=== PATIENT | female | born 1990 | race Hispanic/Latino ===

== ENCOUNTER 2017-08-21 12:47 | Emergency (ER) | payer OTHER ==
[~2017-08-21] VITALS: Ht 157.5 cm; Wt 65.9 kg
[~2017-08-21 12:47] MED LIST: [UNRECOGNIZED DRUG - OTHER] PO
[2017-08-21] MEDS ORDERED: ADDERALL15 MG PO (13:17)
[2017-08-21] MEDS ORDERED: IBUPROFEN600 MG PO (14:02)
[2017-08-21 14:25] VITALS: BP 119/79
== END 2017-08-21 14:25 | disposition home or self-care (01) | DRG 563 ==
LOC: ED 12:47
PROC: 2W3RX1Z Immobilization of Left Lower Leg using Splint (ICD-10-PCS; principal; 2017-08-21)
DX: S82.832A Other fracture of upper and lower end of left fibula, initial encounter for closed fracture (principal); W01.0XXA Fall on same level from slipping, tripping and stumbling without subsequent striking against object, initial encounter; Y93.F9 Activity, other caregiving; Y92.89 Other specified places as the place of occurrence of the external cause; Y99.0 Civilian activity done for income or pay